=== PATIENT | female | born 1950 | race African-American/Black ===

== ENCOUNTER 2018-02-26 08:29 | Emergency (ER) | payer MEDICARE, MEDICAID ==
[~2018-02-26] VITALS: Ht 157.5 cm; Wt 49.9 kg
[2018-02-26 08:33] VITALS: BP 0/0
[2018-02-26] MEDS ORDERED: EPINEPHrine HCL 1 MG/10 ML SYRG ONE (08:47)
[2018-02-26] MEDS ORDERED: SODIUM BICARBONATE 8.4% INJ 50ML SYRINGE ONE (08:48)
== END 2018-02-26 15:34 | disposition expired ==
LOC: EDBD 08:29 → ER 08:29
DX: I46.9 Cardiac arrest, cause unspecified (principal); I10 Essential (primary) hypertension; Z85.3 Personal history of malignant neoplasm of breast
CPT/HCPCS: 31500; 92950